=== PATIENT | male | born 1960 | race African-American/Black ===

== ENCOUNTER 2018-05-13 11:13 | Inpatient (IN) | payer OTHER ==
[2018-05-13 12:27] VITALS: BMI 21.5
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
[2018-05-13] MEDS ORDERED: MAGNESIUM CITRATE 300 ML BOTTLE PO PRN (15:43)
[2018-05-13] MEDS ORDERED: IBUPROFEN 400 MG TABLET (FP) PO PRN (15:43)
[2018-05-13] MEDS ORDERED: guaiFENesin/D-METHORPHAN HB 10 ML UNIT-DOSE CUPS PO PRN (15:43)
[2018-05-13] MEDS ORDERED: MAGNESIUM HYDROX 2400MG/30ML ORAL SUSPENSION 30 ML CUP PO PRN (15:43)
[2018-05-13] MEDS ORDERED: chlordiazePOXIDE HCL 25 MG CAPSULE PO PRN (15:43)
[2018-05-13] MEDS ORDERED: NICOTINE POLACRILEX 2 MG GUM BC PRN (15:43)
[2018-05-13] MEDS ORDERED: ACETAMINOPHEN 325 MG TABLET (FP) PO PRN (15:43)
[2018-05-13] MEDS ORDERED: LOPERAMIDE HCL 2 MG CAPSULE PO PRN (15:43)
[2018-05-13] MEDS ORDERED: P-EPHED 60MG/TRIPROLIDI 2.5MG TABLET PO PRN (15:43)
[2018-05-13] MEDS ORDERED: MAG HYDROX/AL HYDROX/SIMETH 30 ML UNIT-DOSE CUP PO PRN (15:43)
[2018-05-13] MEDS ORDERED: MENTHOL/PHENOL 1 EACH UD MM PRN (15:43)
[2018-05-13] MEDS ORDERED: hydrOXYzine PAMOATE 25 MG CAPSULE (FP) PO PRN (15:43)
[2018-05-13] MEDS: chlordiazePOXIDE HCL 25 MG CAPSULE PO SCH ×2 (17:11→22:33)
--- NOTE | 2018-05-13 18:07 | PN ---
[facility] Progress Note Note: TC from RN - pt states he is PPD positive. Chest xray ordered
[2018-05-13] MEDS ORDERED: MELATONIN 5 MG TABLETS PO PRN (22:00)
[2018-05-13] MEDS: THIAMINE HCL 100 MG TABLET (FP) PO SCH (22:33)
[2018-05-14 01:29] LABS: URINE APPEARANCE CLOUDY; URINE BILIRUBIN NEGATIVE (<2.0 mg/dL); URINE COLOR AMBER; URINE GLUCOSE (UA) NEGATIVE (NEGATIVE); URINE KETONE NEGATIVE (NEGATIVE); URINE LEUK ESTERASE 3+ (NEGATIVE); URINE NITRITE NEGATIVE (NEGATIVE); URINE PROTEIN 1+ (NEGATIVE)
[2018-05-14 01:53] LABS: URINE BACTERIA RARE /hpf (NONE SEEN); URINE MUCUS RARE
[2018-05-14] MEDS: chlordiazePOXIDE HCL 25 MG CAPSULE PO SCH ×4 (05:31→22:38)
[2018-05-14] MEDS: amLODIPine BESYLATE 10 MG TABLET (FP) PO SCH (10:33)
[2018-05-14] MEDS: PRENATAL VITAMINS W/ FOLIC ACID TABLET (FP) PO SCH (10:34)
[2018-05-14 10:37] LABS: ALBUMIN 2.9 g/dl (3.4-5.0); ALK PHOS 131 U/L (45-117); ANION GAP 7 MMOL/L (8-16); BILIRUBIN,TOTAL 0.4 mg/dL (0.2-1); BLOOD UREA NITROGEN 11 mg/dL (7-18); CALCIUM 8.7 mg/dL (8.5-10.1); CHLORIDE 103 mmol/L (98-107); CO2 29 mmol/L (21-32); CREATININE 0.8 mg/dL (0.55-1.3); GLUCOSE,RANDOM 86 mg/dL (74-106); POTASSIUM 3.8 mmol/L (3.5-5.1); SGOT/AST 30 U/L (15-37); SGPT/ALT 26 U/L (13-61); SODIUM 139 mmol/L (136-145); TOT PROT 6.7 g/dl (6.4-8.2)
[2018-05-14 10:38] LABS: HEMATOCRIT 39.2 % (35.4-49); HEMOGLOBIN 12.7 GM/dL (11.7-16.9); MCH 31.9 pg (25.7-33.7); MCHC 32.3 g/dl (32.0-35.9); MEAN CELL VOLUME 98.6 fl (80-96); MEAN PLT VOLUME 8.3 fl (7.5-11.1); PLATELET COUNT 244 K/MM3 (134-434); RBC 3.98 M/mm3 (4.00-5.60); WHITE BLOOD COUNT 3.9 K/mm3 (4.0-10.0)
--- NOTE | 2018-05-14 14:07 | PN ---
[facility] CIWA - CIWA Score Nausea/Vomitin-Mild Nausea/No Vomiting Muscle Tremors: 3 Anxiety: 2 Agitation: 1-Slight > Activity Paroxysmal Sweats: 3 Orientation: 0-Oriented Tacttile Disturbances: 0-None Auditory Disturbances: 0-None Visual Disturbances: 0-None Headache: 0-None Present CIWA-Ar Total Score: 10 S Progress Note (SOAP) Subjective: shakes sweats Objective: 05/14/18 14:01 A & Ox 3 no acute distress noted Vital Signs Temperature 97.8 F 05/14/18 06:15 Pulse Rate 69 05/14/18 06:15 Respiratory Rate 18 05/14/18 06:15 Blood Pressure 137/96 05/14/18 06:15 O2 Sat by Pulse Oximetry (%) Laboratory Last Values WBC 3.9 K/mm3 (4.0-10.0) L 05/14/18 06:30 RBC 3.98 M/mm3 (4.00-5.60) L 05/14/18 06:30 Hgb 12.7 GM/dL (11.7-16.9) 05/14/18 06:30 Hct 39.2 % (35.4-49) 05/14/18 06:30 MCV 98.6 fl (80-96) H 05/14/18 06:30 MCH 31.9 pg (25.7-33.7) 05/14/18 06:30 MCHC 32.3 g/dl (32.0-35.9) 05/14/18 06:30 RDW 14.0 % (11.9-15.9) 05/14/18 06:30 Plt Count 244 K/MM3 (134-434) D 05/14/18 06:30 MPV 8.3 fl (7.5-11.1) 05/14/18 06:30 Sodium 139 mmol/L (136-145) 05/14/18 06:30 Potassium 3.8 mmol/L (3.5-5.1) 05/14/18 06:30 Chloride 103 mmol/L (98-107) 05/14/18 06:30 Carbon Dioxide 29 mmol/L (21-32) 05/14/18 06:30 Anion Gap 7 MMOL/L (8-16) L 05/14/18 06:30 BUN 11 mg/dL (7-18) 05/14/18 06:30 Creatinine 0.8 mg/dL (0.55-1.3) 05/14/18 06:30 Creat Clearance w eGFR > 60 (>60) 05/14/18 06:30 Random Glucose 86 mg/dL (74-106) 05/14/18 06:30 Calcium 8.7 mg/dL (8.5-10.1) 05/14/18 06:30 Total Bilirubin 0.4 mg/dL (0.2-1) 05/14/18 06:30 AST 30 U/L (15-37) 05/14/18 06:30 ALT 26 U/L (13-61) 05/14/18 06:30 Alkaline Phosphatase 131 U/L (45-117) H 05/14/18 06:30 Total Protein 6.7 g/dl (6.4-8.2) 05/14/18 06:30 Albumin 2.9 g/dl (3.4-5.0) L 05/14/18 06:30 Urine Color Connie 05/14/18 00:05 Urine Appearance Cloudy 05/14/18 00:05 Urine pH 6.0 (5.0-8.0) 05/14/18 00:05 Ur Specific [place] 1.025 (1.010-1.035) 05/14/18 00:05 Urine Protein 1+ (NEGATIVE) H 05/14/18 00:05 Urine Glucose (UA) Negative (NEGATIVE) 05/14/18 00:05 Urine Ketones Negative (NEGATIVE) 05/14/18 00:05 Urine Blood Negative (NEGATIVE) 05/14/18 00:05 Urine Nitrite Negative (NEGATIVE) 05/14/18 00:05 Urine Bilirubin Negative (<2.0 mg/dL) 05/14/18 00:05 Urine Urobilinogen 2.0 mg/dL (0.2-1.0) 05/14/18 00:05 Ur Leukocyte Esterase 3+ (NEGATIVE) H 05/14/18 00:05 Urine WBC (Auto) 173 /hpf (3-5) 05/14/18 00:05 Urine RBC (Auto) 1 /hpf (0-3) 05/14/18 00:05 Urine Bacteria Rare /hpf (NONE SEEN) 05/14/18 00:05 Urine Mucus Rare 05/14/18 00:05 RPR Titer Nonreactive (NONREACTIVE) 05/14/18 06:30 abnormal lab results Assessment: 05/14/18 14:01 withdrawal sx abnormal urinalysis - pt has an exposed suprapubic urine stoma Plan: continue detox increase hydration repeat ua in a.m
[2018-05-14] MEDS ORDERED: BACITRACIN 15 GM TUBE TOPICAL OINTMENT TP SCH (22:00)
[2018-05-14] MEDS: BACITRACIN 0.9 GM PACKET TP SCH (22:39)
[2018-05-14] MEDS: THIAMINE HCL 100 MG TABLET (FP) PO SCH (22:39)
[2018-05-15] MEDS: chlordiazePOXIDE HCL 25 MG CAPSULE PO SCH (06:01)
[2018-05-15 06:21] VITALS: TEMP 97.1
[2018-05-15 07:52] VITALS: BP 140/94; PULSE 70
[2018-05-15] MEDS: amLODIPine BESYLATE 10 MG TABLET (FP) PO SCH (09:23)
[2018-05-15] MEDS: PRENATAL VITAMINS W/ FOLIC ACID TABLET (FP) PO SCH (09:23)
[2018-05-15] MEDS: BACITRACIN 0.9 GM PACKET TP SCH (09:23)
--- NOTE | 2018-05-15 14:02 | DS ---
[facility] Detox Discharge Summary Admission Date: 05/13/18 Discharge Date: 05/15/18 - History Present History: Alcohol Dependence - Physical Exam Results Vital Signs: Vital Signs Temperature 97.1 F L 05/15/18 06:21 Pulse Rate 70 05/15/18 07:51 Respiratory Rate 18 05/15/18 06:21 Blood Pressure 140/94 05/15/18 07:51 O2 Sat by Pulse Oximetry (%) Pertinent Admission Physical Exam Findings: Pt leaving AMA today before completing detox protocol. Pt states he came in 2 days prior because he "wanted to rest". Feeling fine now and says that he will not relapse. Pt received norvasc prescription in April- an active prescription and had antibiotics also in Apr. Pt will f/u with PCP for these medications- pt is in the retirement system. - Treatment Hospital Course: Detox Protocol Followed - Medication Discharge Medications: Ambulatory Orders Amlodipine Besylate [Norvasc -] 10 mg PO DAILY 05/13/18 Sulfamethoxazole/Trimethoprim [Sulfamethoxazole-Tmp Ds Tablet] 1 each PO Q12H levoFLOXacin [Levaquin -] 500 mg PO DAILY 05/13/18 - AMA Did Patient Leave Against Medical Advice: Yes
[2018-05-15] MEDS ORDERED: chlordiazePOXIDE 5 MG CAPSULE PO SCH (17:00)
[2018-05-16] MEDS ORDERED: chlordiazePOXIDE HCL 10 MG CAPSULE PO SCH (17:00)
== END 2018-05-15 09:00 | disposition left against medical advice (07) | DRG 770 ==
LOC: YASAS 11:13 → Y3N 13:19
PROC: HZ2ZZZZ Detoxification Services for Substance Abuse Treatment (ICD-10-PCS; principal; 2018-05-13)
DX: F10.230 Alcohol dependence with withdrawal, uncomplicated (principal); F14.10 Cocaine abuse, uncomplicated; F12.20 Cannabis dependence, uncomplicated; F17.210 Nicotine dependence, cigarettes, uncomplicated; F41.1 Generalized anxiety disorder; F39 Unspecified mood [affective] disorder; F99 Mental disorder, not otherwise specified; R82.90 Unspecified abnormal findings in urine; Z86.79 Personal history of other diseases of the circulatory system; Z93.59 Other cystostomy status; Z88.8 Allergy status to other drugs, medicaments and biological substances
CPT/HCPCS: 36415; 71046-TC-FY; 80053; 81003; 81015; 85027; 86593

== ENCOUNTER 2021-09-09 13:50 | Inpatient (IN) | payer OTHER ==
[2021-09-09] MEDS ORDERED: ACETAMINOPHEN 325 MG TABLET (FP) PO PRN ×2 (15:01)
[2021-09-09] MEDS ORDERED: chlordiazePOXIDE HCL 25 MG CAPSULE PO PRN (15:01)
[2021-09-09] MEDS ORDERED: DICYCLOMINE HCL 10 MG CAPSULE PO PRN (15:01)
[2021-09-09] MEDS ORDERED: ONDANSETRON *ODT* 4 MG TABLET SL PRN (15:01)
[2021-09-09] MEDS ORDERED: MENTHOL/PHENOL 1 EACH UD MM PRN (15:01)
[2021-09-09] MEDS ORDERED: NICOTINE 10 MG CARTRIDGE (INHALER) IH PRN (15:01)
[2021-09-09] MEDS ORDERED: BISMUTH SUBSALICYLATE 524 MG/30 ML PO PRN (15:01)
[2021-09-09] MEDS ORDERED: MAGNESIUM HYDROX 2400MG/30ML ORAL SUSPENSION 30 ML CUP PO PRN (15:01)
[2021-09-09] MEDS ORDERED: MAG HYDROX/AL HYDROX/SIMETH 30 ML UNIT-DOSE CUP PO PRN (15:01)
[2021-09-09] MEDS ORDERED: MAGNESIUM CITRATE 300 ML BOTTLE PO PRN (15:01)
[2021-09-09] MEDS ORDERED: LOPERAMIDE HCL 2 MG CAPSULE PO PRN (15:01)
[2021-09-09 15:27] VITALS: BMI 23.8
[2021-09-09] MEDS ORDERED: chlordiazePOXIDE HCL 25 MG CAPSULE ONE (18:46)
[2021-09-09] MEDS: chlordiazePOXIDE HCL 25 MG CAPSULE PO SCH ×2 (18:49→23:12)
[2021-09-09] MEDS: THIAMINE HCL 100 MG TABLET (FP) PO SCH (23:14)
[2021-09-09] MEDS: METHOCARBAMOL 500 MG TABLET PO PRN (23:14)
[2021-09-09] MEDS: hydrOXYzine PAMOATE 25 MG CAPSULE (FP) PO SCH ×2 (23:14→23:24)
[2021-09-09] MEDS: MELATONIN 5 MG TABLETS PO SCH (23:15)
[2021-09-09] MEDS: PRENATAL VITAMINS W/ FOLIC ACID TABLET (FP) PO SCH (23:19)
[2021-09-10] MEDS: chlordiazePOXIDE HCL 25 MG CAPSULE PO SCH ×3 (06:12→18:16)
[2021-09-10] MEDS: hydrOXYzine PAMOATE 25 MG CAPSULE (FP) PO SCH ×4 (06:12→18:16)
[2021-09-10 10:05] LABS: WHITE BLOOD COUNT 4.1 K/mm3 (4.0-10.0)
[2021-09-10 10:06] LABS: HEMATOCRIT 35.8 % (35.4-49); MCH 30.7 pg (25.7-33.7); MCHC 33.4 g/dl (32.0-35.9); MEAN CELL VOLUME 91.8 fl (80-96); MEAN PLT VOLUME 8.5 fl (7.5-11.1); PLATELET COUNT 166 10^3/uL (134-434); RDW 15.6 % (11.9-15.9)
[2021-09-10 10:13] LABS: ALBUMIN 2.4 g/dl (3.4-5.0); BLOOD UREA NITROGEN 14.3 mg/dL (7-18); CALCIUM 8.2 mg/dL (8.5-10.1)
[2021-09-10 10:14] LABS: CREATININE 0.9 mg/dL (0.55-1.3)
[2021-09-10 10:16] LABS: BILIRUBIN,TOTAL 0.4 mg/dL (0.2-1)
[2021-09-10] MEDS: METHOCARBAMOL 500 MG TABLET PO PRN (13:33)
[2021-09-10] MEDS: PRENATAL VITAMINS W/ FOLIC ACID TABLET (FP) PO SCH (13:33)
[2021-09-11] MEDS: chlordiazePOXIDE HCL 25 MG CAPSULE PO SCH ×5 (00:07→22:29)
[2021-09-11] MEDS: THIAMINE HCL 100 MG TABLET (FP) PO SCH ×2 (00:07→22:29)
[2021-09-11] MEDS: hydrOXYzine PAMOATE 25 MG CAPSULE (FP) PO SCH ×6 (00:07→22:28)
[2021-09-11] MEDS: MELATONIN 5 MG TABLETS PO SCH ×2 (00:07→22:28)
[2021-09-11] MEDS: PRENATAL VITAMINS W/ FOLIC ACID TABLET (FP) PO SCH (10:41)
[2021-09-11 14:08] LABS: SARS-CoV-2 NAA Not Detected (Not Detected)
[2021-09-12] MEDS ORDERED: chlordiazePOXIDE HCL 10 MG CAPSULE PO PRN
[2021-09-12] MEDS: chlordiazePOXIDE HCL 10 MG CAPSULE PO SCH ×3 (05:51→18:02)
[2021-09-12] MEDS: hydrOXYzine PAMOATE 25 MG CAPSULE (FP) PO SCH ×5 (05:54→22:23)
[2021-09-12] MEDS: PRENATAL VITAMINS W/ FOLIC ACID TABLET (FP) PO SCH (10:37)
[2021-09-12] MEDS ORDERED: chlordiazePOXIDE HCL 10 MG CAPSULE PO SCH (17:00)
[2021-09-12] MEDS: amLODIPine BESYLATE 10 MG TABLET (FP) PO SCH (17:25)
[2021-09-12] MEDS: MELATONIN 5 MG TABLETS PO SCH (22:23)
[2021-09-12] MEDS: METHOCARBAMOL 500 MG TABLET PO PRN (22:23)
[2021-09-12] MEDS: THIAMINE HCL 100 MG TABLET (FP) PO SCH (22:23)
[2021-09-13] MEDS: chlordiazePOXIDE HCL 10 MG CAPSULE PO SCH ×3 (01:32→18:29)
[2021-09-13] MEDS ORDERED: chlordiazePOXIDE HCL 10 MG CAPSULE PO SCH ×2 (05:00)
[2021-09-13] MEDS: hydrOXYzine PAMOATE 25 MG CAPSULE (FP) PO SCH ×5 (06:02→22:20)
[2021-09-13] MEDS: amLODIPine BESYLATE 10 MG TABLET (FP) PO SCH (10:38)
[2021-09-13] MEDS: PRENATAL VITAMINS W/ FOLIC ACID TABLET (FP) PO SCH (10:38)
[2021-09-13] MEDS: METHOCARBAMOL 500 MG TABLET PO PRN ×2 (15:53→22:20)
[2021-09-13] MEDS: IBUPROFEN 400 MG TABLET (FP) PO PRN (15:53)
[2021-09-13] MEDS: MELATONIN 5 MG TABLETS PO SCH (22:20)
[2021-09-13] MEDS: THIAMINE HCL 100 MG TABLET (FP) PO SCH (22:20)
[2021-09-14] MEDS ORDERED: chlordiazePOXIDE HCL 10 MG CAPSULE PO ONE ×3 (05:00)
[2021-09-14] MEDS: hydrOXYzine PAMOATE 25 MG CAPSULE (FP) PO SCH ×2 (06:29→09:21)
[2021-09-14] MEDS: amLODIPine BESYLATE 10 MG TABLET (FP) PO SCH (09:21)
[2021-09-14] MEDS: PRENATAL VITAMINS W/ FOLIC ACID TABLET (FP) PO SCH (09:21)
[2021-09-14 09:24] VITALS: BP 142/105; PULSE 84; TEMP 98.7
[2021-09-14] MEDS: IBUPROFEN 400 MG TABLET (FP) PO PRN (09:30)
== END 2021-09-14 10:20 | disposition home or self-care (01) | DRG 774 ==
LOC: YASAS 13:50 → Y6N 19:47
PROVIDERS: ADMIT Allergy & Immunology; ATTEND Allergy & Immunology
PROC: HZ2ZZZZ Detoxification Services for Substance Abuse Treatment (ICD-10-PCS; principal; 2021-09-09)
DX: F10.230 Alcohol dependence with withdrawal, uncomplicated (principal); F14.10 Cocaine abuse, uncomplicated; F12.20 Cannabis dependence, uncomplicated; F17.213 Nicotine dependence, cigarettes, with withdrawal; I10 Essential (primary) hypertension; H55.00 Unspecified nystagmus; M17.0 Bilateral primary osteoarthritis of knee; Z96.0 Presence of urogenital implants; R26.89 Other abnormalities of gait and mobility; Z99.89 Dependence on other enabling machines and devices; Z86.79 Personal history of other diseases of the circulatory system; Z86.19 Personal history of other infectious and parasitic diseases; Z88.8 Allergy status to other drugs, medicaments and biological substances
CPT/HCPCS: 36415; 71045-TC-FY; 80053; 85027; 86593; 86780; 93005; 93010; C9803-CS; U0003; U0005